=== PATIENT | female | born 1950 | race Caucasian/White ===

== ENCOUNTER 2019-06-28 01:28 | Emergency (ER) | payer OTHER ==
[2019-06-28 03:06] LABS: Absolute Lymphocytes (CBC) 3.7 K/uL (0.7-4.9); Basophils % 1.2 % (0-1.3); Hematocrit 41.7 % (36.0-45.0); Lymphocytes % 29.9 % (15.3-44.8); MPV 7.9 fL (7.6-11.3); RBC Red Blood Cell Count 4.79 M/uL (3.86-4.86)
[2019-06-28 03:13] LABS: Protime INR 0.85
[2019-06-28 03:24] LABS: ALT/SGPT 24 U/L (12-78); AST/SGOT 14 U/L (15-37); Albumin 3.4 g/dL (3.4-5.0); Alkaline Phosphatase 99 U/L (45-117); BUN Blood Urea Nitrogen 22 mg/dL (7-18); Bicarbonate 30 mmol/L (21-32); Bilirubin Direct 0.1 mg/dL (0-0.2); Bilirubin Total 0.5 mg/dL (0.2-1.0); Glucose Level 130 mg/dL (74-106); Lipase 140 U/L (73-393); Magnesium 1.7 mg/dL (1.8-2.4); NT PRO-BNP 274 pg/mL (<125); Potassium 3.7 mmol/L (3.5-5.1); Protein, Total 7.4 g/dL (6.4-8.2); Sodium Level 140 mmol/L (136-145); Troponin (Emerg Dept Use Only) < 0.02 ng/mL (0.0-0.045)
--- NOTE | 2019-06-28 03:48 | ER ---
Nurse's Notes [facility] Name: Cindy Reina Age: 69 yrs Sex: Female : 1950 Arrival Date: 06/28/2019 Time: 01:30 Bed 3 Private MD: Diagnosis: exterminator (current) use of insulin;Hypoglycemia, unspecified;Hyperglycemia, unspecified;Type 1 diabetes mellitus;Hypomagnesemia Presentation: 06/28 01:59 Presenting complaint: Patient states: "I accidentally gave myself the wrong insulin"; lp1 states giving herself 42 units of Novolog at 0015 instead of Levemir; States blood sugar of 298 at 0030, rechecked at 0115 and blood sugar at 218. Transition of care: patient was not received from another setting of care. Onset of symptoms was June 28, 2019 at 00:30. Risk Assessment: Do you want to hurt yourself or someone else? Patient reports no desire to harm self or others. Initial Sepsis Screen: Does the patient meet any 2 criteria? Yes Does the patient have a suspected source of infection? No. Patient's initial sepsis screen is negative. Care prior to arrival: None. 01:59 Method Of Arrival: Wheelchair lp1 01:59 Acuity: ADALBERTO 3 lp1 Triage Assessment: 02:00 General: Appears in no apparent distress. Behavior is calm, cooperative, Patient given lp1 orange juice at this time . Historical: - Allergies: 02:03 Codeine; lp1 - Home Meds: 02:03 ezetimibe oral 10 mg oral once daily [Active]; metformin 500 mg Oral tab 1 tab 2 times lp1 per day [Active]; duloxetine 60 mg oral cpDR 1 cap once daily [Active]; losartan-hydrochlorothiazide 100-25 mg oral tab 1 tab once daily [Active]; sertraline 25 mg oral tab 1 tab once daily [Active]; levothyroxine 75 mcg tab 1 tab once daily [Active]; - PMHx: 02:03 Diabetes - IDDM; Heart Murmur; Depression; Hypothyroidism; lp1 - PSHx: 02:03 shoulder sx; Cholecystectomy; lp1 - Immunization history:: Adult Immunizations up to date. - Social history:: Smoking status: Patient/guardian denies using tobacco. - Ebola Screening: : No symptoms or risks identified at this time. - Family history:: not pertinent. Screenin:46 Abuse screen: Denies threats or abuse. Denies injuries from another. Nutritional lp1 screening: No deficits noted. Tuberculosis screening: No symptoms or risk factors identified. Fall Risk None identified. Assessment: 02:00 General: Appears in no apparent distress. Behavior is calm, cooperative, appropriate lp1 for age. Pain: Denies pain. Neuro: Level of Consciousness is awake, alert, obeys commands, Oriented to person, place, time, situation, Gait is steady. Cardiovascular: Patient's skin is warm and dry. Respiratory: Respiratory effort is even, unlabored. GI: Abdomen is obese. : No signs and/or symptoms were reported regarding the genitourinary system. EENT: No signs and/or symptoms were reported regarding the EENT system. Derm: Skin is pink, warm \\T\\ dry. Musculoskeletal: No deficits noted. 02:45 Reassessment: Patient eating sandwich and fruit cup at this time. lp1 03:30 Reassessment: Patient appears in no apparent distress at this time. Patient is alert, lp1 oriented x 3, equal unlabored respirations, skin warm/dry/pink. Patient denies any discomfort; given orange juice at this time. 03:59 Reassessment: Provider states to delay discharge and continue to monitor patient's lp1 blood sugar. 05:06 Reassessment: Patient appears in no apparent distress at this time. Patient is alert, lp1 oriented x 3, equal unlabored respirations, skin warm/dry/pink. Patient denies pain at this time. Vital Signs: 02:00 BP 141 / 54; Pulse 81; Resp 18; Temp 97.2; Pulse Ox 97% on R/A; Weight 131.54 kg; lp1 Height 5 ft. 3 in. (160.02 cm); Pain 0/10; 03:30 BP 111 / 57; Pulse 70; Resp 19; Pulse Ox 95% on R/A; lp1 05:08 BP 116 / 57; Pulse 70; Resp 18; Pulse Ox 95% on R/A; Pain 0/10; lp1 02:00 Body Mass Index 51.37 (131.54 kg, 160.02 cm) lp1 ED Course: 01:30 Patient arrived in ED. ds1 01:47 Cesario Lezama MD is Attending Physician. [facility] 01:58 Marya Wick, RN is Primary Nurse. lp1 02:00 Triage completed. lp1 02:00 Arm band placed on right wrist. lp1 02:03 Patient has correct armband on for positive identification. lp1 05:07 No provider procedures requiring assistance completed. lp1 05:31 IV discontinued, No redness/swelling at site. Pressure dressing applied. lp1 06:00 XRAY Chest (1 view) In Process Unspecified. EDMS Administered Medications: 03:57 Drug: Magnesium Sulfate 1 grams Route: IVPB; Infused Over: 1 hrs; Site: right forearm; lp1 05:08 Follow up: IV Status: Completed infusion; IV Intake: 100ml lp1 Intake: 05:08 IV: 100ml; Total: 100ml. lp1 Outcome: 03:48 Discharge ordered by . [facility] 05:31 Discharged to home via wheelchair, with family. lp1 05:31 Condition: good 05:31 Discharge instructions given to patient, family, Instructed on discharge instructions, follow up and referral plans. Demonstrated understanding of instructions, follow-up care. 05:31 Patient left the ED. lp1 Signatures: Dispatcher [employer] EDMS Cesario Lezama MD MD cha Sanford, Demi ds1 Marya Wick, RN RN lp1
--- NOTE | 2019-06-28 03:49 | EDPHYS ---
Physician Documentation [facility] Name: Cindy Reina Age: 69 yrs Sex: Female : 1950 Arrival Date: 06/28/2019 Time: 01:30 Bed 3 Private MD: ED Physician Cesario Lezama HPI: 06/28 02:19 This 69 yrs old Female presents to ER via Wheelchair with complaints of Low marely Blood Sugar - Insulin OD. 02:19 The patient or guardian reports hyperglycemia, hypoglycemia. Onset: The marely symptoms/episode began/occurred just prior to arrival. Associated signs and symptoms: Pertinent positives: None. Pertinent negatives: None. Current symptoms: In the emergency department the patient's symptoms are unchanged from the initial presentation. The patient has not experienced similar symptoms in the past. Historical: - Allergies: 02:03 Codeine; lp1 - Home Meds: 02:03 ezetimibe oral 10 mg oral once daily [Active]; metformin 500 mg Oral tab 1 tab 2 times lp1 per day [Active]; duloxetine 60 mg oral cpDR 1 cap once daily [Active]; losartan-hydrochlorothiazide 100-25 mg oral tab 1 tab once daily [Active]; sertraline 25 mg oral tab 1 tab once daily [Active]; levothyroxine 75 mcg tab 1 tab once daily [Active]; - PMHx: 02:03 Diabetes - IDDM; Heart Murmur; Depression; Hypothyroidism; lp1 - PSHx: 02:03 shoulder sx; Cholecystectomy; lp1 - Immunization history:: Adult Immunizations up to date. - Social history:: Smoking status: Patient/guardian denies using tobacco. - Ebola Screening: : No symptoms or risks identified at this time. - Family history:: not pertinent. ROS: 02:19 Constitutional: Negative for fever, chills, and weight loss, Eyes: Negative for injury, marely pain, redness, and discharge, ENT: Negative for injury, pain, and discharge, Neck: Negative for injury, pain, and swelling, Cardiovascular: Negative for chest pain, palpitations, and edema, Respiratory: Negative for shortness of breath, cough, wheezing, and pleuritic chest pain, Abdomen/GI: Negative for abdominal pain, nausea, vomiting, diarrhea, and constipation, Back: Negative for injury and pain, : Negative for injury, bleeding, discharge, and swelling, MS/Extremity: Negative for injury and deformity, Skin: Negative for injury, rash, and discoloration, Neuro: Negative for headache, weakness, numbness, tingling, and seizure, Psych: Negative for depression, anxiety, suicide ideation, homicidal ideation, and hallucinations, Allergy/Immunology: Negative for hives, rash, and allergies, Endocrine: Negative for neck swelling, polydipsia, polyuria, polyphagia, and marked weight changes, Hematologic/Lymphatic: Negative for swollen nodes, abnormal bleeding, and unusual bruising. Exam: 02:19 Constitutional: This is a well developed, well nourished patient who is awake, alert, maerly and in no acute distress. Head/Face: Normocephalic, atraumatic. Eyes: Pupils equal round and reactive to light, extra-ocular motions intact. Lids and lashes normal. Conjunctiva and sclera are non-icteric and not injected. Cornea within normal limits. Periorbital areas with no swelling, redness, or edema. ENT: Nares patent. No nasal discharge, no septal abnormalities noted. Tympanic membranes are normal and external auditory canals are clear. Oropharynx with no redness, swelling, or masses, exudates, or evidence of obstruction, uvula midline. Mucous membranes moist. Neck: Trachea midline, no thyromegaly or masses palpated, and no cervical lymphadenopathy. Supple, full range of motion without nuchal rigidity, or vertebral point tenderness. No Meningismus. Chest/axilla: Normal chest wall appearance and motion. Nontender with no deformity. No lesions are appreciated. Cardiovascular: Regular rate and rhythm with a normal S1 and S2. No gallops, murmurs, or rubs. Normal PMI, no JVD. No pulse deficits. Respiratory: Lungs have equal breath sounds bilaterally, clear to auscultation and percussion. No rales, rhonchi or wheezes noted. No increased work of breathing, no retractions or nasal flaring. Abdomen/GI: Soft, non-tender, with normal bowel sounds. No distension or tympany. No guarding or rebound. No evidence of tenderness throughout. Back: No spinal tenderness. No costovertebral tenderness. Full range of motion. Female : Normal external genitalia. Skin: Warm, dry with normal turgor. Normal color with no rashes, no lesions, and no evidence of cellulitis. MS/ Extremity: Pulses equal, no cyanosis. Neurovascular intact. Full, normal range of motion. Psych: Awake, alert, with orientation to person, place and time. Behavior, mood, and affect are within normal limits. Vital Signs: 02:00 BP 141 / 54; Pulse 81; Resp 18; Temp 97.2; Pulse Ox 97% on R/A; Weight 131.54 kg; lp1 Height 5 ft. 3 in. (160.02 cm); Pain 0/10; 03:30 BP 111 / 57; Pulse 70; Resp 19; Pulse Ox 95% on R/A; lp1 05:08 BP 116 / 57; Pulse 70; Resp 18; Pulse Ox 95% on R/A; Pain 0/10; lp1 02:00 Body Mass Index 51.37 (131.54 kg, 160.02 cm) lp1 MDM: 01:47 Patient medically screened. [facility] 02:21 Data reviewed: vital signs, nurses notes, lab test result(s). [facility] 06/28 01:48 Order name: Basic Metabolic Panel [facility] 06/28 01:48 Order name: CBC with Diff [facility] 06/28 01:48 Order name: LFT's [facility] 06/28 01:48 Order name: Magnesium [facility] 06/28 01:48 Order name: NT PRO-BNP [facility] 06/28 01:48 Order name: PT-INR [facility] 06/28 01:48 Order name: Troponin (emerg Dept Use Only) [facility] 06/28 01:48 Order name: Lipase [facility] 06/28 02:05 Order name: Glucose, Ancillary Testing; Complete Time: 03:42 [facility] 06/28 03:12 Order name: CBC with Automated Diff; Complete Time: 03:42 [facility] 06/28 03:16 Order name: Protime (+INR); Complete Time: 03:42 [facility] 06/28 03:24 Order name: Basic Metabolic Panel; Complete Time: 03:42 [facility] 06/28 03:24 Order name: Liver (Hepatic) Function; Complete Time: 03:42 [facility] 06/28 03:24 Order name: Troponin (Emerg Dept Use Only); Complete Time: 03:42 [facility] 06/28 01:48 Order name: XRAY Chest (1 view) [facility] 06/28 01:48 Order name: EKG; Complete Time: 01:49 [facility] 06/28 01:48 Order name: Cardiac monitoring; Complete Time: 03:45 [facility] 06/28 01:48 Order name: EKG - Nurse/Tech; Complete Time: 03:45 [facility] 06/28 01:48 Order name: IV Saline Lock; Complete Time: 02:59 [facility] 06/28 01:48 Order name: Labs collected and sent; Complete Time: 02:59 [facility] 06/28 01:48 Order name: O2 Per Protocol; Complete Time: 02:59 [facility] 06/28 01:48 Order name: O2 Sat Monitoring; Complete Time: 02:59 [facility] 06/28 02:19 Order name: Diet Regular; Complete Time: 02:20 [facility] 06/28 03:24 Order name: NT PRO-BNP; Complete Time: 03:42 [facility] 06/28 03:24 Order name: Magnesium; Complete Time: 03:42 [facility] 06/28 03:24 Order name: Lipase; Complete Time: 03:42 [facility] 06/28 03:56 Order name: Glucose, Ancillary Testing [facility] 06/28 05:12 Order name: Glucose, Ancillary Testing [facility] 06/28 03:44 Order name: PO challenge: JUICE; Complete Time: 03:45 [facility] Administered Medications: 03:57 Drug: Magnesium Sulfate 1 grams Route: IVPB; Infused Over: 1 hrs; Site: right forearm; lp1 05:08 Follow up: IV Status: Completed infusion; IV Intake: 100ml lp1 Disposition: 06/28/19 03:48 Discharged to Home. Impression: penitentiary (current) use of insulin, Hypoglycemia, unspecified, Hyperglycemia, unspecified, Type 1 diabetes mellitus, Hypomagnesemia. - Condition is Stable. - Discharge Instructions: Type 1 Diabetes Mellitus, Diagnosis, Adult, Hyperglycemia, Hypoglycemia, Hypomagnesemia, Blood Glucose Monitoring, Adult, Diabetes Mellitus and Food, Hyperglycemia, [id number]-Fyrt, Hypoglycemia, [id number]-Eaoa. - Medication Reconciliation Form, Thank You Letter, Antibiotic Education, Prescription Opioid Use form. - Follow up: Private Physician; When: 2 - 3 days; Reason: Recheck today's complaints, Continuance of care, Re-evaluation by your physician. - Problem is new. - Symptoms have improved. Signatures: Dispatcher [employer] EDCesario Junior MD MD cha Pena, Laura, RN RN lp1 Corrections: (The following items were deleted from the chart) 05:31 03:48 06/28/2019 03:48 Discharged to Home. Impression: penitentiary (current) use of lp1 insulin; Hypoglycemia, unspecified; Hyperglycemia, unspecified; Type 1 diabetes mellitus; Hypomagnesemia. Condition is Stable. Discharge Instructions: Type 1 Diabetes Mellitus, Diagnosis, Adult, Hyperglycemia, Hypoglycemia, Blood Glucose Monitoring, Adult, Diabetes Mellitus and Food, Hyperglycemia, Uyhp-[id number], Hypoglycemia, [id number]. Forms are Medication Reconciliation Form, Thank You Letter, Antibiotic Education, Prescription Opioid Use. Follow up: Private Physician; When: 2 - 3 days; Reason: Recheck today's complaints, Continuance of care, Re-evaluation by your physician. Problem is new. Symptoms have improved. marely
[2019-06-28] MEDS ORDERED: MAGNESIUM SULFATE 1 gm IVPB 1 GM/100 ML BAG IV ONE (03:53)
--- NOTE | 2019-06-28 08:19 | RAD REPORT ---
EXAM DESCRIPTION: Gabrielle Single View06/28/2019 3:12 am CLINICAL HISTORY: cough COMPARISON: 2014 FINDINGS: The lungs appear clear of acute infiltrate. The heart is normal size IMPRESSION: No acute abnormalities displayed
--- NOTE | 2019-06-28 08:21 | EKG ---
Test Date: 2019-06-28 Test Time: 03:18:39 Substation Technician: JOSÉ MIGUEL MEASUREMENT RESULTS: Intervals: Rate: 80 CT: 154 QRSD: 86 QT: 388 QTc: 447 [place]: P: 33 CT: 154 QRS: -59 T: 84 INTERPRETIVE STATEMENTS: Normal sinus rhythm Left anterior fascicular block Cannot rule out Anterior infarct, age undetermined Abnormal ECG Compared to ECG 06/17/2007 16:45:55 Left anterior fascicular block now present Myocardial infarct finding now present Electronically Signed On 06-28-19 08:20:39 MACHINERY ENGINEER by Alexander Puga
[2019-06-28 10:57] VITALS: TEMP 97.2
[2019-06-28 10:58] VITALS: O2SAT 95
[2019-06-28 10:59] VITALS: BP 116/57
== END 2019-06-28 05:31 | disposition home or self-care (01) ==
LOC: ER 01:28
DX: E10.649 Type 1 diabetes mellitus with hypoglycemia without coma (principal); E83.42 Hypomagnesemia; Z79.4 Long term (current) use of insulin
CPT/HCPCS: 96365; 93005; 85025; 80048; 36415; 83735; 85610; 82947 ×3; 80076; 84484; 83690; 83880; 71045; 99283; J3475

== ENCOUNTER 2021-04-12 12:30 | Emergency (ER) | payer OTHER ==
[2021-04-12 15:02] LABS: Absolute Lymphocytes (CBC) 2.6 K/uL (0.7-4.9); Basophils % 1.3 % (0-1.3); Hematocrit 41.9 % (36.0-45.0); Lymphocytes % 21.3 % (15.3-44.8); MPV 8.5 fL (7.6-11.3); RBC Red Blood Cell Count 4.73 M/uL (3.86-4.86)
[2021-04-12] MEDS ORDERED: NA CHLORIDE 0.9% 500 ML ONE (15:12)
[2021-04-12 15:17] LABS: Albumin 3.3 g/dL (3.4-5.0); Bilirubin Total 0.5 mg/dL (0.2-1.0); Protein, Total 7.4 g/dL (6.4-8.2)
[2021-04-12 15:18] LABS: Potassium 4.8 mmol/L (3.5-5.1)
--- NOTE | 2021-04-12 15:51 | RAD REPORT ---
EXAM DESCRIPTION: RAD - Pelvis - 04/12/2021 3:37 pm CLINICAL HISTORY: BLUNT TRAUMA COMPARISON: Femur Right dated 04/12/2021 FINDINGS: No acute fracture. No malalignment. No significant focal degenerative changes. IMPRESSION: No acute osseous abnormality involving the pelvis.
--- NOTE | 2021-04-12 16:13 | RAD REPORT ---
EXAM DESCRIPTION: RAD - Femur Right - 04/12/2021 3:37 pm CLINICAL HISTORY: PAIN COMPARISON: Pelvis dated 04/12/2021 FINDINGS: Mild degenerative changes of the right acetabulum. No right femur fracture is identified. IMPRESSION: No acute osseous abnormality involving the right femur.
--- NOTE | 2021-04-12 16:25 | ER ---
Nurse's Notes [facility] Name: Cindy Reina Age: 70 yrs Sex: Female : 1950 Arrival Date: 04/12/2021 Time: 12:46 Bed 14 Private MD: Diagnosis: Pain in right leg;Pain in right thigh;Type 1 diabetes mellitus with hyperglycemia;Obesity, unspecified Presentation: 04/12 12:46 Chief complaint: Patient states: was on her hover round chair and it got stuck in iw grass/mud, she was moving limbs and old air conditioners across driveway, when she got up out of chair she noticed her right groin was hurting and pain radiates down right leg. Coronavirus screen: At this time, the client does not indicate any symptoms associated with coronavirus-19. Ebola Screen: Patient negative for fever greater than or equal to 101.5 degrees Fahrenheit, and additional compatible Ebola Virus Disease symptoms Patient denies exposure to infectious person. Patient denies travel to an Ebola-affected area in the 21 days before illness onset. No symptoms or risks identified at this time. Initial Sepsis Screen: Does the patient meet any 2 criteria? No. Patient's initial sepsis screen is negative. Does the patient have a suspected source of infection? No. Patient's initial sepsis screen is negative. Risk Assessment: Do you want to hurt yourself or someone else? Patient reports no desire to harm self or others. Onset of symptoms was April 12, 2021. 12:46 Method Of Arrival: EMS: [facility] iw 12:46 Acuity: ADALBERTO 3 iw Triage Assessment: 12:54 General: Appears in no apparent distress. obese, Behavior is calm, cooperative, kh1 appropriate for age. Pain: Complains of pain in right leg Pain radiates to right leg Pain Quality of pain is described as sharp, Pain began 1 hour ago. Musculoskeletal: No deficits noted. No signs and/or symptoms reported regarding the musculoskeletal system. Range of motion:. Historical: - Allergies: 12:48 Codeine; iw - Home Meds: 12:57 duloxetine 60 mg Oral cpDR 1 cap once daily [Active]; ezetimibe 10 mg Oral once daily iw [Active]; levothyroxine 75 mcg tab 1 tab once daily [Active]; losartan-hydrochlorothiazide 100-25 mg Oral tab 1 tab once daily [Active]; metformin 500 mg Oral tab 1 tab 2 times per day [Active]; sertraline 25 mg Oral tab 1 tab once daily [Active]; - PMHx: 12:48 Depression; Diabetes - IDDM; Heart Murmur; Hypothyroidism; iw - Immunization history:: Adult Immunizations up to date, Client reports receiving the Tito \T\ Tito single-dose vaccine. Date received November 02, 2020. - Social history:: Smoking status: Patient denies any tobacco usage or history of. Patient/guardian denies using alcohol, street drugs, tobacco products. - Family history:: not pertinent. Screenin:05 Abuse screen: Denies threats or abuse. Nutritional screening: No deficits noted. [facility] Tuberculosis screening: No symptoms or risk factors identified. Fall Risk Secondary diagnosis (15 points) impaired mobility, Ambulatory Aid- Crutches/Cane/Walker (15 pts). Gait- Impaired (20 pts.). Assessment: 13:05 General: Appears in no apparent distress. Neuro: No deficits noted. Reports weakness in [facility] right leg and left leg. 15:00 Reassessment: Patient appears in no apparent distress at this time. No changes from [facility] previously documented assessment. Patient and/or family updated on plan of care and expected duration. Pain level reassessed. 16:17 Reassessment: Patient appears in no apparent distress at this time. No changes from [facility] previously documented assessment. Patient and/or family updated on plan of care and expected duration. Pain level reassessed. Patient is alert, oriented x 3, equal unlabored respirations, skin warm/dry/pink. Patient denies pain at this time. Vital Signs: 12:46 BP 156 / 63; Pulse 91; Resp 16; Temp 98.0; Pulse Ox 97% on R/A; Weight 134.72 kg; Height 5 ft. 3 in. (160.02 cm); Pain 10/10; 12:56 BP 122 / 67; Pulse 89; Resp 16; Temp 99.3(O); Pulse Ox 99% on R/A; Weight 134.72 kg; kh1 Height 5 ft. 3 in. (160.02 cm); Pain 0/10; 14:00 BP 130 / 68; Pulse 83; Resp 20; Pulse Ox 97% on R/A; kh1 15:00 BP 148 / 94; Pulse 76; Resp 18; Pulse Ox 99% on R/A; kh1 12:56 Body Mass Index 52.61 (134.72 kg, 160.02 cm) kh Vitals: 13:05 Cardiac Rhythm Assessment Sinus rhythm. [facility] ED Course: 12:46 Patient arrived in ED. iw 12:48 Triage completed. iw 12:54 Anna Puga is Primary Nurse. kh1 12:57 Arm band placed on. iw 13:07 Patient has correct armband on for positive identification. Bed in low position. Call [facility] light in reach. Side rails up X2. Adult w/ patient. glove cuffer on. Pulse ox on. NIBP on. 13:07 No provider procedures requiring assistance completed. 1 13:46 Cesario Lezama MD is Attending Physician. [facility] 15:02 Comprehensive Metabolic Panel Sent. [facility] 15:02 CBC with Diff Sent. kh1 15:37 Pelvis XRAY In Process Unspecified. EDMS 15:37 Femur Right XRAY In Process Unspecified. EDMS 16:16 US Extremity Venous Unilateral Ltd In Process Unspecified. EDMS Administered Medications: 14:51 Drug: NS 0.9% 500 ml Route: IV; Rate: bolus; Site: right hand; kh1 16:30 Drug: Insulin Regular Human 10 units {Co-Signature: ap3 (Tarah Garcia RN).} Route: kh1 Sub-Q; Site: abdomen; 16:34 Not Given (Patient Refused): morphine 2 mg IVP once; (PAIN>8) RASS on ADMN: Combtv4, kh1 Very Agttd3, Agttd2, Rstlss1, AlertClm0, Drwsy-1, LtSdtn-2, ModSdtn-3, DpSdtn-4, UnArsble-5 x2 16:34 Not Given (Patient Refused): Zofran (Ondansetron) 4 mg IVP once; over 2 minutes [facility] Outcome: 16:24 Discharge ordered by . marely 17:43 Patient left the ED. Signatures: Dispatcher [employer] EDMS Cesario Lezama MD MD cha Williams, Irene, RN RN Anna Puga [facility] Tarah Garcia RN ap3 Corrections: (The following items were deleted from the chart) 12:57 12:46 Chief complaint: Patient states: was on her hover round chair and it got stuck in iw grass/mud, she was moving limbs and old air conditioners across driveway, when she got up out of chair she noticed her right low back was hurting and pain radiates down right leg iw
--- NOTE | 2021-04-12 16:25 | EDPHYS ---
Physician Documentation [facility] Name: Cindy Reina Age: 70 yrs Sex: Female : 1950 Arrival Date: 04/12/2021 Time: 12:46 Bed 14 Private MD: ED Physician Cesario Lezama HPI: 04/12 16:19 This 70 yrs old Female presents to ER via EMS with complaints of Leg Pain. marely 16:19 The patient presents with decreased range of motion, pain, that is acute. The marely complaints affect the right upper thigh and right quadriceps. Context: The problem was sustained at home, resulted from an unknown cause, the patient can partially bear weight. Onset: The symptoms/episode began/occurred just prior to arrival, this morning. Modifying factors: The symptoms are alleviated by remaining still, the symptoms are aggravated by movement. Associated signs and symptoms: The patient has no apparent associated signs or symptoms. Treatment prior to arrival includes: no previous treatment. Severity of symptoms: At their worst the symptoms were moderate, in the emergency department the symptoms are unchanged. The patient has not experienced similar symptoms in the past. Historical: - Allergies: 12:48 Codeine; iw - Home Meds: 12:57 duloxetine 60 mg Oral cpDR 1 cap once daily [Active]; ezetimibe 10 mg Oral once daily iw [Active]; levothyroxine 75 mcg tab 1 tab once daily [Active]; losartan-hydrochlorothiazide 100-25 mg Oral tab 1 tab once daily [Active]; metformin 500 mg Oral tab 1 tab 2 times per day [Active]; sertraline 25 mg Oral tab 1 tab once daily [Active]; - PMHx: 12:48 Depression; Diabetes - IDDM; Heart Murmur; Hypothyroidism; iw - Immunization history:: Adult Immunizations up to date, Client reports receiving the Tito \T\ Tito single-dose vaccine. Date received November 02, 2020. - Social history:: Smoking status: Patient denies any tobacco usage or history of. Patient/guardian denies using alcohol, street drugs, tobacco products. - Family history:: not pertinent. ROS: 16:19 Constitutional: Negative for fever, chills, and weight loss, Eyes: Negative for injury, marely pain, redness, and discharge, ENT: Negative for injury, pain, and discharge, Neck: Negative for injury, pain, and swelling, Cardiovascular: Negative for chest pain, palpitations, and edema, Respiratory: Negative for shortness of breath, cough, wheezing, and pleuritic chest pain, Abdomen/GI: Negative for abdominal pain, nausea, vomiting, diarrhea, and constipation, Back: Negative for injury and pain, : Negative for injury, bleeding, discharge, and swelling, Skin: Negative for injury, rash, and discoloration, Neuro: Negative for headache, weakness, numbness, tingling, and seizure, Psych: Negative for depression, anxiety, suicide ideation, homicidal ideation, and hallucinations, Allergy/Immunology: Negative for hives, rash, and allergies, Endocrine: Negative for neck swelling, polydipsia, polyuria, polyphagia, and marked weight changes, Hematologic/Lymphatic: Negative for swollen nodes, abnormal bleeding, and unusual bruising. 16:19 MS/extremity: Positive for decreased range of motion, pain, swelling, tenderness, of the right inner thigh and medial aspect of right thigh. Exam: 16:19 Constitutional: This is a well developed, well nourished patient who is awake, alert, marely and in no acute distress. Head/Face: Normocephalic, atraumatic. Eyes: Pupils equal round and reactive to light, extra-ocular motions intact. Lids and lashes normal. Conjunctiva and sclera are non-icteric and not injected. Cornea within normal limits. Periorbital areas with no swelling, redness, or edema. ENT: Nares patent. No nasal discharge, no septal abnormalities noted. Tympanic membranes are normal and external auditory canals are clear. Oropharynx with no redness, swelling, or masses, exudates, or evidence of obstruction, uvula midline. Mucous membranes moist. Neck: Trachea midline, no thyromegaly or masses palpated, and no cervical lymphadenopathy. Supple, full range of motion without nuchal rigidity, or vertebral point tenderness. No Meningismus. Chest/axilla: Normal chest wall appearance and motion. Nontender with no deformity. No lesions are appreciated. Cardiovascular: Regular rate and rhythm with a normal S1 and S2. No gallops, murmurs, or rubs. Normal PMI, no JVD. No pulse deficits. Respiratory: Lungs have equal breath sounds bilaterally, clear to auscultation and percussion. No rales, rhonchi or wheezes noted. No increased work of breathing, no retractions or nasal flaring. Abdomen/GI: Soft, non-tender, with normal bowel sounds. No distension or tympany. No guarding or rebound. No evidence of tenderness throughout. Back: No spinal tenderness. No costovertebral tenderness. Full range of motion. Female : Normal external genitalia. Skin: Warm, dry with normal turgor. Normal color with no rashes, no lesions, and no evidence of cellulitis. Neuro: Awake and alert, GCS 15, oriented to person, place, time, and situation. Cranial nerves II-XII grossly intact. Motor strength 5/5 in all extremities. Sensory grossly intact. Cerebellar exam normal. Normal gait. Psych: Awake, alert, with orientation to person, place and time. Behavior, mood, and affect are within normal limits. 16:19 Musculoskeletal/extremity: Extremities: noted in the right inner thigh and medial aspect of right thigh: decreased ROM, pain, ROM: no acute changes, Circulation is intact in all extremities. Sensation intact. Compartment Syndrome exam of affected extremity: is normal. no numbness, no tingling, no sensation deficit, no palor, no weak pulses, DVT Exam: no swelling, negative Homans' sign noted on exam, no appreciated bluish discoloration, no erythema, no increased warmth, pain, tenderness. Vital Signs: 12:46 BP 156 / 63; Pulse 91; Resp 16; Temp 98.0; Pulse Ox 97% on R/A; Weight 134.72 kg; Height 5 ft. 3 in. (160.02 cm); Pain 10/10; 12:56 BP 122 / 67; Pulse 89; Resp 16; Temp 99.3(O); Pulse Ox 99% on R/A; Weight 134.72 kg; kh1 Height 5 ft. 3 in. (160.02 cm); Pain 0/10; 14:00 BP 130 / 68; Pulse 83; Resp 20; Pulse Ox 97% on R/A; kh1 15:00 BP 148 / 94; Pulse 76; Resp 18; Pulse Ox 99% on R/A; kh1 12:56 Body Mass Index 52.61 (134.72 kg, 160.02 cm) [facility] MDM: 13:46 Patient medically screened. [facility] 16:21 Differential diagnosis: contusion, abrasion, tendonitis. Data reviewed: vital signs, [facility] nurses notes, lab test result(s), radiologic studies. Data interpreted: court recording monitor: rate is 89 beats/min, rhythm is regular, Pulse oximetry: on room air is 97 %. Test interpretation: by ED physician or midlevel provider: plain radiologic studies. Counseling: I had a detailed discussion with the patient and/or guardian regarding: the historical points, exam findings, and any diagnostic results supporting the discharge/admit diagnosis, lab results, radiology results, the need for outpatient follow up, for definitive care, a family practitioner, a orthopedic surgeon. 04/12 14:33 Order name: CBC with Diff; Complete Time: 16:17 [facility] 04/12 14:33 Order name: Comprehensive Metabolic Panel; Complete Time: 16:17 [facility] 04/12 14:33 Order name: US Extremity Venous Unilateral Ltd [facility] 04/12 14:33 Order name: Pelvis XRAY; Complete Time: 16:17 [facility] 04/12 14:33 Order name: Femur Right XRAY; Complete Time: 16:17 [facility] Administered Medications: 14:51 Drug: NS 0.9% 500 ml Route: IV; Rate: bolus; Site: right hand; kh1 16:30 Drug: Insulin Regular Human 10 units {Co-Signature: ap3 (Tarah Garcia RN).} Route: kh1 Sub-Q; Site: abdomen; 16:34 Not Given (Patient Refused): morphine 2 mg IVP once; (PAIN>8) RASS on ADMN: Combtv4, kh1 Very Agttd3, Agttd2, Rstlss1, AlertClm0, Drwsy-1, LtSdtn-2, ModSdtn-3, DpSdtn-4, UnArsble-5 x2 16:34 Not Given (Patient Refused): Zofran (Ondansetron) 4 mg IVP once; over 2 minutes kh1 Disposition Summary: 04/12/21 16:25 Discharge Ordered Location: Home marely Problem: new marely Symptoms: have improved marely Condition: Stable marely Diagnosis - Pain in right leg marely - Pain in right thigh marely - Type 1 diabetes mellitus with hyperglycemia marely - Obesity, unspecified marely Followup: marely - With: Private Physician - When: 2 - 3 days - Reason: Recheck today's complaints, Re-evaluation by your physician Discharge Instructions: - Discharge Summary Sheet marely - Type 1 Diabetes Mellitus, Diagnosis, Adult marely - Hyperglycemia marely - Obesity, Adult marely - Blood Glucose Monitoring, Adult [facility] Forms: - Medication Reconciliation Form marely - Thank You Letter marely - Antibiotic Education [facility] - Prescription Opioid Use [facility] Prescriptions: - Tramadol 50 mg Oral Tablet - take 1 tablet by ORAL route every 6 hours as needed; 26 tablet; Refills: 0, marely Product Selection Permitted Signatures: Dispatcher [employer] Cesario Mas MD MD cha Williams, Irene, RN RN iw Harris, Kecia [facility] Tarah Garcia RN ap3
--- NOTE | 2021-04-12 16:26 | RAD REPORT ---
EXAM DESCRIPTION: US - Extremity Venous Uni Ltd - 04/12/2021 4:16 pm CLINICAL HISTORY: Pain COMPARISON: None. TECHNIQUE: Real-time sonographic evaluation of the right lower extremity deep venous system was perf ormed. FINDINGS: Normal compressibility, flow augmentation, phasic flow and spontaneous flow is identified in the right lower extremity deep venous system. No intraluminal filling defects seen. IMPRESSION: No DVT in the right lower extremity.
[2021-04-12] MEDS ORDERED: INSULIN -REGULAR HUMAN 50 UNIT/0.5 ML ML ONE (16:54)
[2021-04-12 18:41] VITALS: TEMP 99.3
[2021-04-12 18:44] VITALS: BP 148/94; O2SAT 99
== END 2021-04-12 17:43 | disposition home or self-care (01) ==
LOC: ER 12:30
DX: M79.651 Pain in right thigh (principal); E10.65 Type 1 diabetes mellitus with hyperglycemia; E66.9 Obesity, unspecified; E03.9 Hypothyroidism, unspecified; F32.9 Major depressive disorder, single episode, unspecified; Z88.5 Allergy status to narcotic agent
CPT/HCPCS: 85025; 36415; 80053; 72170; 73552; 93971; 96372; 99284; J7040

== ENCOUNTER 2022-12-29 16:32 | Emergency (ER) | payer OTHER ==
--- OUTSIDE RECORDS SUMMARY | 2022-12-29 16:35 | XMS REPORT | Continuity of Care Document ---
:1950 Author Organization [facility] t Address [address] [place] [place] [address] Care Team Providers Name Role Phone TRE PAUL Primary Care Physician Unavailable Tre Paul Attending Clinician Unavailable NIMA GUZMAN Attending Clinician Unavailable LAUREN ACOSTA Attending Clinician Unavailable Nima Zuniga Attending Clinician Lauren Acosta MD Attending Clinician Doctor Unassigned, [place] Attending Clinician Unavailable Lesli Forrest DO Attending Clinician LESLI FORREST Attending Clinician Unavailable LESLI FORREST Admitting Clinician Unavailable Payers Payer Name Policy Type Policy Number Effective Date Expiration Date S [employer] [place] PLUS [id number] 2022 CLASSIC NO PREMIUM 00:00:00 HMO Problems Condition Condition Condition Status Onset Resolution Last Treating Co mments Source Name Details Category Date Date Treatment Clinician Date [id number] Morbid Problem Commo n 9104 (severe) Spirit obesity - CHI due to [facility] [id number] Body mass Problem Com mon index Spirit [BMI] - CHI 50.0-59.9, [facility] [id number] Essential Problem Comm on (primary) Spirit hypertensi - CHI on [facility] [id number] Moderate Problem Commo n major Spirit depression - CHI , single episode [facility] [id number] Hypothyroi Problem Co mmon dism Spirit (acquired) - CHI [facility] [id number] Chronic Problem Commo n kidney Spirit disease, [id number] Type 2 Problem Common diabetes [facility] [id number] Type 2 Problem Commo n 05 diabetes Spirit mellitus - CHI with diabetic [facility] chronic Medical kidney Center disease [id number] SHERYL Problem Common (generaliz Spirit ed anxiety - CHI disorder) [facility] [id number] Mixed Problem Common hyperlipid Spirit emia - CHI [facility] [id number] Type 2 [place] [address] diabetes Spirit mellitus - CHI with other diabetic [facility] kidney Medical complicati Center on Diabetic Problem Comm on neuropathi Spirit c - CHI arthropath [facility] [id number] alf Problem Com mon (current) Spirit use of - CHI insulin [facility] Allergies, Adverse Reactions, Alerts Allergy Allergy Status Severity Reaction(s) Onset Inactive Treating Comm ents Source Name Type Date Date Clinician CODEINE DRUG Active Other-Cmnt Unive rs INGREDI 5-10 ity of 00:00: [place] 00 Medical Branch Codeine Propensi Active Other - See drowsines Univers ty to comments 5-10 s ity of adverse 00:00: [place] reaction 00 Medical s to Branch drug codeine codeine Active Unknown Common Spirit - CHI [facility] Social History Social Habit Start Date Stop Date Quantity Comments Source History of Common Spirit - Tobacco Use [facility] Exposure to 2022-12-04 2022-12-14 Not sure [facility] SARS-CoV-2 00:00:00 10:04:00 [facility] (event) Branch Tobacco use and 2022-12-14 2022-12-14 Smokeless tobacco Un iversity of exposure 00:00:00 00:00:00 non-user [facility] Alcohol intake 2022-12-14 2022-12-14 Lifetime University of 00:00:00 00:00:00 non-drinker [facility] (finding) [place] Sex Assigned At [birth year] Universit y of 00:00:00 00:00:00 [facility] Smoking Status Start Date Stop Date Source Tobacco smoking [facility] [place] xa consumption unknown Medical Bran ch Never smoked tobacco [facility] Former Smoker 2022-07-03 00:00:00 2022-07-03 [facility] Sp[facility] t [facility] 00:00:00 [facility] nter Medications Ordered Filled Start Stop Current Ordering Indication Dosage Frequency Signature Comments Components Source Medication Medication Date Date Medication? Clinician (SIG) Name Name naproxen Yes [id number] 550mg Take 1 Un kody sodium 550 5-10 tablet by ity of mg tablet [place] the Medical morning Branch and 1 tablet in the evening. Take with meals. naproxen Yes [id number] 550mg Take 1 Un kody sodium 550 5-10 tablet by ity of mg tablet 00:00[place] the Medical morning Branch and 1 tablet in the evening. Take with meals. naproxen Yes [id number] 550mg Take 1 Un kody sodium 550 5-10 tablet by ity of mg tablet 00:00: [place] the Medical morning Branch and 1 tablet in the evening. Take with meals. naproxen Yes [id number] 550mg Take 1 Un kody sodium 550 5-10 tablet by ity of mg tablet 00:00[place] the Medical morning Branch and 1 tablet in the evening. Take with meals. HYDROcodone 2022- Yes 4647 .5{tbl} Take 0.5-1 Univers -acetaminop 5-10 05-18 tablets by i ty of hen (NORCO) 00:00: 04:59 [place] 10-325 mg 00 :00 every 6 Medical tablet (six) Branch hours as needed for Pain (scale 7-10) for up to 7 days. Indication s: acute pain methocarbam 2022- Yes [id number] 500mg Take 1 Univers oL 500 mg 5-10 05-16 tablet by ity of tablet 00:00: 04:59 mouth in [place] 00 :00 the Medical morning Branch and 1 tablet at noon and 1 tablet in the evening. Do all this for 5 days. Sertraline Sertraline No 1{table QD Sertraline HCl 25 MG HCl 25 MG t} HCl 25 MG Euthyrox 75 Euthyrox 75 No QD Euthyrox MCG MCG 75 MCG DULoxetine DULoxetine No 1{capsu QD DULoxetine HCl 60 MG HCl 60 MG le} HCl 60 MG Memantine Memantine No 1{table QD Memantine HCl 10 MG HCl 10 MG t} HCl 10 MG Ezetimibe Ezetimibe No 1{table QD Ezetimibe 10 MG 10 MG t} 10 MG metFORMIN metFORMIN No 1{table QD metFORMIN HCl ER 500 HCl ER 500 t_with_ HCl ER 500 MG MG evening MG _meal} NovoLOG NovoLOG No NovoLOG FlexPen FlexPen FlexPen Losartan Losartan No 1{table QD Losartan Potassium-H Potassium-H t} Potassium- CTZ 100-25 CTZ 100-25 HCTZ MG MG 100-25 MG Donepezil Donepezil No 1{table QD Donepezil HCl 10 MG HCl 10 MG t_at_be HCl 10 MG dtime} Levemir Levemir No Levemir FlexTouch FlexTouch FlexTouch Memantine Memantine No 1{table QD Memantine HCl 10 MG HCl 10 MG t} HCl 10 MG Donepezil Donepezil No 1{table QD Donepezil HCl 10 MG HCl 10 MG t_at_be HCl 10 MG dtime} DULoxetine DULoxetine No 1{capsu QD DULoxetine HCl 60 MG HCl 60 MG le} HCl 60 MG NovoLOG NovoLOG No NovoLOG FlexPen FlexPen FlexPen Levemir Levemir No Levemir FlexTouch FlexTouch FlexTouch metFORMIN metFORMIN No BID metFORMIN HCl ER 500 HCl ER 500 HCl ER 500 MG MG MG Sertraline Sertraline No 1{table QD Sertraline HCl 25 MG HCl 25 MG t} HCl 25 MG Losartan Losartan No 1{table QD Losartan Potassium-H Potassium-H t} Potassium- CTZ 100-25 CTZ 100-25 HCTZ MG MG 100-25 MG Euthyrox 75 Euthyrox 75 No QD Euthyrox MCG MCG 75 MCG Ezetimibe Ezetimibe No 1{table QD Ezetimibe 10 MG 10 MG t} 10 MG Vital Signs Vital Name Observation Time Observation Value Comments Source Body height 2022-12-14 15:27:[address] [facility] Body weight 2022-12-14 15:27:00 124.739 kg Universi ty of [facility] BMI 2022-12-14 15:27:00 48.71 kg/m2 Universi ty of [facility] Systolic blood 2022-12-06 21:00:00 120 mm[Hg] Univer sity of pressure [facility] Diastolic blood 2022-12-06 21:00:00 47 mm[Hg] Unive rsity of [facility] Heart rate 2022-12-06 21:00:00 73 /min Universi ty of [facility] Respiratory rate 2022-12-06 21:00:00 15 /min [facility] Oxygen saturation in 2022-12-06 21:00:00 96 /min [facility] Arterial blood by [facility] Pulse oximetry [place] Body temperature 2022-12-06 19:46:00 37.33 Tricia [facility] Body height 2022-12-06 19:46:00 63 cm Universi ty of [facility] Body weight 2022-12-06 19:46:00 124.739 kg Universi ty of [facility] BMI 2022-12-06 19:46:00 314.29 kg/m2 Universi ty of [facility] respiratory rate 2022-07-04 13:50:00 17 /min Comm on [facility] blood pressure 2022-07-04 13:50:00 137 mm[Hg] Common [facility] - systolic [facility] blood pressure 2022-07-04 13:50:00 69 mm[Hg] Common [facility] - diastolic [facility] height 2022-07-04 13:50:00 63 [in_i] Common [facility] weight 2022-07-04 13:50:00 293.5 [lb_av] Common [facility] temperature 2022-07-04 13:50:00 97.2 [degF] Common [facility] bmi 2022-07-04 13:50:00 51.99 kg/m2 [facility] oximetry 2022-07-04 13:50:00 97 % Common [facility] height 2022-06-02 09:10:00 63 [in_i] [facility] weight 2022-06-02 09:10:00 293.5 [lb_av] [facility] temperature 2022-06-02 09:10:00 97.8 [degF] [facility] bmi 2022-06-02 09:10:00 51.99 kg/m2 [facility] oximetry 2022-06-02 09:10:00 95 % [facility] respiratory rate 2022-06-02 09:10:00 17 /min Comm on [facility] blood pressure 2022-06-02 09:10:00 131 mm[Hg] Common [facility] systolic [facility] blood pressure 2022-06-02 09:10:00 70 mm[Hg] Common [facility] diastolic [facility] Procedures Procedure Date / Time Performed Performing Clinician [facility] e ASSIGNMENT OF BENEFITS 2022-12-14 15:05:55 Doctor Unassigned, No [facility] XR ANKLE <3 VW LEFT 2022-12-06 20:11:41 Lesli Forrest [facility] Encounters Start End Encounter Admission Attending Care Care Encounter Source Date/Time Date/Time Type Type Clinicians Facility Department ID 2022-06-[address] [facility] [id number] Common 13:05:01 Tre [id number] [facility] 2022-06-[address] [facility] [id number] Common 09:49:02 Tre [id number] [facility] 2022-12-26 2022-12-26 Outpatient Andrew GUZMAN [facility] [id number] Univers 13:30:00 13:30:[address] [facility] 2022-12-22 2022-12-22 Outpatient Andrew GUZMAN [facility] [id number] Univers 10:15:00 10:15:[address] [facility] 2022-12-14 2022-12-14 Outpatient Andrew ACOSTA [facility] [id number] Univers 10:45:00 11:27:33 LAUREN echols of [facility] 2022-12-14 2022-12-14 Office Nima Guzman [facility] [id number] Univers 10:45:00 11:00:00 Visit Lauren Acosta [facility] [id number] ity of [place] [id number] Her[place] as SONU?BLEA [id number] Ri dical [address] MEDICAL OFFICE BUILDING 2022-12-14 2022-12-14 Orders Doctor LAUREANO [id number] Univers 00:00:00 00:00:00 Only Unassigned, ELIZABETH [id number] ity of [place] [facility] [id number] Herrera as [id number] [facility] [address] [place] 2022-12-06 2022-12-06 Emergency Singer [facility] [id number] Univers 14:43:00 17:40:00 Lesli MICHEAL [id number] i ty [place] [id number] [place] [id number] [facility] [address] [place] 2022-12-06 2022-12-06 Emergency X SINGER [facility] ERT [id number] Univers 14:43:00 17:40:00 LESLI echols [facility] 2022-07-04 2022-07-04 OFFICE STLMLC STLMLC [id number] Co mmon 00:00:00 00:00:00 VISIT Spirit ESTAB PT - CHI LEVEL 4 [facility] 2022-06-02 2022-06-02 OFFICE STLMLC STLMLC [id number] Co mmon 00:00:00 00:00:00 VISIT NEW Spir it PT LEVEL 5 - CHI [facility] Results This patient has no known results.
[2022-12-29] MEDS ORDERED: TRAMADOL HCL 50 MG TAB ONE (17:01)
--- NOTE | 2022-12-29 17:30 | RAD REPORT ---
EXAM DESCRIPTION: RAD - Ankle Right 3 View - 12/29/2022 5:20 pm CLINICAL HISTORY: PAIN COMPARISON: Ankle Left 3 View dated 08/09/2016; Tib Fib Left dated 12/29/2022 TECHNIQUE: Right ankle, 3 views. FINDINGS: No fracture, dislocation or periosteal reaction. Diffuse osteopenia somewhat limits evalua tion. No joint effusion seen. No joint space narrowing. No soft tissue abnormality. Vascular calcific ation. Large calcaneal spur. IMPRESSION: No acute osseous abnormality. Diffuse osteopenia which limits evaluation. Large calcanea l spur.
--- NOTE | 2022-12-29 17:31 | RAD REPORT ---
EXAM DESCRIPTION: RAD - Tib Fib Left - 12/29/2022 5:20 pm CLINICAL HISTORY: PAIN COMPARISON: Ankle Right 3 View dated 12/29/2022; Ankle Left 3 View dated 08/09/2016 TECHNIQUE: Left tibia and fibula, 2 views. FINDINGS: Comminuted oblique fracture of the mid tibial shaft. . There is no dislocation or periosteal reaction noted. Diffuse osteopenia somewhat limits evaluation. No foreign body or other soft tissue abnormality. IMPRESSION: Comminuted oblique fracture of the mid tibial shaft. .
--- NOTE | 2022-12-29 17:41 | ER ---
Nurse's Notes [facility] Name: Cindy Reina Age: 72 yrs Sex: Female : 1950 Arrival Date: 12/29/2022 Time: 16:32 Bed 17 Private MD: Diagnosis: Displaced comminuted fracture of shaft of left tibia;Pain in right ankle and joints of right foot Presentation: 12/29 16:36 Chief complaint: EMS states: patient complains of leg pain from falling and braking db tibia on December 06. States today has pain and hears "click" noise. Coronavirus screen: Vaccine status: Patient reports receiving the 2nd dose of the covid vaccine. Client denies travel out of the [place] in the last 14 days. At this time, the client does not indicate any symptoms associated with coronavirus-19. Ebola Screen: Patient negative for fever greater than or equal to 101.5 degrees Fahrenheit, and additional compatible Ebola Virus Disease symptoms Patient denies exposure to infectious person. Patient denies travel to an Ebola-affected area in the 21 days before illness onset. No symptoms or risks identified at this time. Initial Sepsis Screen: Does the patient meet any 2 criteria? No. Patient's initial sepsis screen is negative. Does the patient have a suspected source of infection? No. Patient's initial sepsis screen is negative. Risk Assessment: Do you want to hurt yourself or someone else? Patient reports no desire to harm self or others. Onset of symptoms was December 29, 2022. 16:36 Method Of Arrival: EMS db 16:36 Acuity: ADALBERTO 3 db Triage Assessment: 16:38 General: Appears in no apparent distress. comfortable, Behavior is calm, cooperative. db Pain: Complains of pain in right leg and left leg. Neuro: Level of Consciousness is awake, alert, obeys commands, Oriented to person, place, time, situation. Historical: - Allergies: 16:38 Codeine; db - PMHx: 16:38 Depression; Diabetes - IDDM; Heart Murmur; Hypothyroidism; db - Immunization history:: Adult Immunizations unknown. - Social history:: Smoking status: Patient/guardian denies using tobacco, but has a distant history of tobacco abuse. Screenin:39 [facility] ED Fall Risk Assessment (Adult) History of falling in the last 3 months, db including since admission No falls in past 3 months (0 pts) Confusion or Disorientation No (0 pts) Intoxicated or Sedated No (0 pts) Impaired Gait No (0 pts) Mobility Assist Device Used No (0 pt) Altered Elimination No (0 pt) Score/Fall Risk Level 0 - 2 = Low Risk Oriented to surroundings, Maintained a safe environment. Abuse screen: Denies threats or abuse. Denies injuries from another. Nutritional screening: No deficits noted. Tuberculosis screening: No symptoms or risk factors identified. Assessment: 16:39 Reassessment: Patient appears in no apparent distress at this time. Patient and/or db family updated on plan of care and expected duration. Pain level reassessed. See triage for initial assessment. General: Appears in no apparent distress. comfortable, Behavior is calm, cooperative. Neuro: Level of Consciousness is awake, alert, obeys commands, Oriented to person, place, time, situation. 17:30 Reassessment: Patient appears in no apparent distress at this time. Patient and/or db family updated on plan of care and expected duration. Pain level reassessed. Patient is alert, oriented x 3, equal unlabored respirations, skin warm/dry/pink. 18:32 Reassessment: transport is on their way to bring patient home. patient is non db ambulatory and bed bound. 18:32 Reassessment: Patient appears in no apparent distress at this time. Patient and/or db family updated on plan of care and expected duration. Pain level reassessed. Patient is alert, oriented x 3, equal unlabored respirations, skin warm/dry/pink. Vital Signs: 16:36 BP 167 / 90; Pulse 67; Resp 18; Temp 98.4(O); Pulse Ox 93% ; Weight 122.47 kg; Height 5 db ft. 3 in. ; 16:45 BP 159 / 79; Pulse 67; Resp 16; Pulse Ox 95% on R/A; db 17:30 BP 170 / 71; Pulse 68; Resp 16; Pulse Ox 95% on R/A; db 16:36 Body Mass Index 47.83 (122.47 kg, 160.02 cm) db ED Course: 16:35 Patient arrived in ED. db 16:38 Triage completed. db 16:38 Arm band placed on Patient placed in an exam room. db 16:40 Macrina Oquendo FNP-C is [facility]. kb 16:40 Ubaldo Thomas MD is Attending Physician. kb 17:11 Laura Galan, RN is Primary Nurse. db 17:22 Tib Fib Left XRAY In Process Unspecified. EDMS 17:22 Ankle Right 3 View XRAY In Process Unspecified. EDMS 17:42 Song Walden MD is Referral Physician. kb 18:33 Awaiting transportation, Awaiting: home. db 18:33 No provider procedures requiring assistance completed. Patient did not have IV access db during this emergency room visit. 18:34 Patient has correct armband on for positive identification. Bed in low position. Call db light in reach. Side rails up X2. Pulse ox on. NIBP on. Warm blanket given. Administered Medications: 17:05 Drug: traMADol PO 50 mg Route: PO; db 18:37 Follow up: Response: No adverse reaction db Medication: 18:34 VIS not applicable for this client. db Outcome: 17:41 Discharge ordered by MD. kb 18:33 Discharged to home via ambulance. db 18:33 Condition: stable 18:33 Discharge instructions given to patient, Instructed on discharge instructions, follow up and referral plans. 18:40 Patient left the ED. db Signatures: Dispatcher [employer] EDMS Macrina Oquendo, ALFREDITO-Ottoniel MINE WIRER-CkLaura Ferrell, RN RN db
--- NOTE | 2022-12-29 17:42 | EDPHYS ---
Physician Documentation [facility] Name: Cindy Reina Age: 72 yrs Sex: Female : 1950 Arrival Date: 12/29/2022 Time: 16:32 Bed 17 Private MD: ED Physician Ubaldo Thomas HPI: 12/29 17:36 This 72 yrs old Female presents to ER via EMS with complaints of Leg Pain. kb 17:36 The patient presents with pain. The complaints affect the anterior aspect of right kb ankle and left wellington. Context: The problem was sustained outdoors, resulted from the patient falling, the patient is not able to bear weight, the patient is not able to ambulate. Onset: The symptoms/episode began/occurred last month. Modifying factors: The symptoms are alleviated by nothing. the symptoms are aggravated by movement. Associated signs and symptoms: The patient has no apparent associated signs or symptoms. Treatment prior to arrival includes: splinting the affected extremity. Severity of symptoms: At their worst the symptoms were moderate, in the emergency department the symptoms are unchanged. The patient has not experienced similar symptoms in the past. The patient has been recently seen by a physician: Dr. Acosta with similar presenting complaints. Pt reports she broke her tibia on 12/06/22. Followed up with Dr Acosta who put her in a boot and told her she was going to need surgery. States she has not been able to follow up again or schedule the surgery due to transportation issues. Came in today for pain to left lower leg and also reports intermittent clicking and pain to right ankle. . Historical: - Allergies: 16:38 Codeine; db - PMHx: 16:38 Depression; Diabetes - IDDM; Heart Murmur; Hypothyroidism; db - Immunization history:: Adult Immunizations unknown. - Social history:: Smoking status: Patient/guardian denies using tobacco, but has a distant history of tobacco abuse. ROS: 17:35 Constitutional: Negative for fever, chills, and weight loss. kb 17:35 MS/extremity: Positive for pain, of the anterior aspect of right ankle and left wellington. 17:35 All other systems are negative. Exam: 17:35 Constitutional: This is a well developed, well nourished patient who is awake, alert, kb and in no acute distress. Head/Face: Normocephalic, atraumatic. ENT: Moist Mucous membranes Cardiovascular: Regular rate and rhythm with a normal S1 and S2. No gallops, murmurs, or rubs. No pulse deficits. Respiratory: Respirations even and unlabored. No increased work of breathing. Talking in full sentences Skin: Warm, dry with normal turgor. Normal color. Neuro: Awake and alert, GCS 15, oriented to person, place, time, and situation. Moves all extremities. 17:35 Musculoskeletal/extremity: Extremities: grossly normal except: noted in the left wellington: pain, tenderness, ROM: limited active range of motion due to pain, Circulation is intact in all extremities. Sensation intact. Weight bearing: is unable to bear weight. Vital Signs: 16:36 BP 167 / 90; Pulse 67; Resp 18; Temp 98.4(O); Pulse Ox 93% ; Weight 122.47 kg; Height 5 db ft. 3 in. ; 16:45 BP 159 / 79; Pulse 67; Resp 16; Pulse Ox 95% on R/A; db 17:30 BP 170 / 71; Pulse 68; Resp 16; Pulse Ox 95% on R/A; db 16:36 Body Mass Index 47.83 (122.47 kg, 160.02 cm) db MDM: 16:40 Patient medically screened. kb 17:36 Differential diagnosis: dislocation, closed fracture, contusion. Data reviewed: vital kb signs, nurses notes. Historians other than the Patient: EMS: [facility]. Counseling: I had a detailed discussion with the patient and/or guardian regarding: the historical points, exam findings, and any diagnostic results supporting the discharge/admit diagnosis, radiology results, the need for outpatient follow up, a orthopedic surgeon, to return to the emergency department if symptoms worsen or persist or if there are any questions or concerns that arise at home. 17:39 Care significantly affected by the following Social Determinants of Health: Poor access kb to transportation. 12/29 16:40 Order name: Tib Fib Left XRAY; Complete Time: 17:33 kb 12/29 16:40 Order name: Ankle Right 3 View XRAY; Complete Time: 17:33 kb Administered Medications: 17:05 Drug: traMADol PO 50 mg Route: PO; db 18:37 Follow up: Response: No adverse reaction db Disposition Summary: 12/29/22 17:41 Discharge Ordered Location: Home kb Condition: Stable kb Diagnosis - Displaced comminuted fracture of shaft of left tibia kb - Pain in right ankle and joints of right foot kb Followup: kb - With: Emergency Department - When: As needed - Reason: Worsening of condition Followup: kb - With: Private Physician - When: 2 - 3 days - Reason: Recheck today's complaints, Continuance of care, Re-evaluation by your physician Followup: kb - With: Song Acosta MD - When: 2 - 3 days - Reason: Recheck today's complaints Discharge Instructions: - Discharge Summary Sheet kb - Musculoskeletal Pain kb - Tibial Shaft Fracture Rehab kb Forms: - Medication Reconciliation Form kb - Thank You Letter kb - Antibiotic Education kb - Prescription Opioid Use kb Addendum: 01/01/2023 09:04 Co-signature as Attending Physician, Ubaldo Thomas MD I reviewed the patient's care r t provided by the Advanced Practice Provider and agree with the diagnosis and treatment plan. Signatures: Dispatcher [employer] Macrina Lomeli, TRANSPORTATION COORDINATOR-C TRANSPORTATION COORDINATOR-Laura Brand, MASOOD RN Ubaldo Mora MD MD rt
[2022-12-29 19:08] VITALS: TEMP 98.4
[2022-12-29 19:10] VITALS: O2SAT 95
[2022-12-29 19:12] VITALS: BP 170/71
== END 2022-12-29 18:40 | disposition home or self-care (01) ==
LOC: ER 16:32
DX: S82.252A Displaced comminuted fracture of shaft of left tibia, initial encounter for closed fracture (principal); M25.571 Pain in right ankle and joints of right foot; Z59.82 Transportation insecurity; Z88.5 Allergy status to narcotic agent
CPT/HCPCS: 99284